=== PATIENT | male | born 1975 | race Caucasian/White ===

== ENCOUNTER 2018-05-12 01:45 | Observation (INO) | payer BC, OTHER ==
[~2018-05-12] VITALS: Ht 172.7 cm; Wt 99.8 kg
[2018-05-12] MEDS ORDERED: ONDANSETRON HCL 4 MG/2 ML VIAL IV ONE (02:00)
[2018-05-12] MEDS ORDERED: SODIUM CHLORIDE 0.9% 1,000 ML IV ONE (02:00)
[2018-05-12 02:15] LABS: Basophils # (auto) 0 uL; Basophils % (auto) 0.6 % (0.0-2.0); Eosinophils # (auto) 0.1 uL; Eosinophils % (auto) 2.1 % (0.0-7.0); Hematocrit 36.5 % (41.0-53.0); Hemoglobin 12.6 g/dL (13.5-17.5); Lymphocytes % (auto) 33.1 % (10.0-50.0); Mean Corpuscular Hemoglobin 33.6 pg (28.0-32.0); Mean Corpuscular Hgb Conc. 34.5 g/dL (32.0-36.0); Mean Corpuscular Volume 97.5 fL (80.0-100.0); Monocytes # (auto) 0.4 uL; Monocytes % (auto) 6.8 % (0.0-12.0); Neutrophils # (auto) 3.5 uL; Neutrophils % (auto) 57.4 % (37.0-80.0); Nucleated Red Blood Cells % 0.1 %; Platelet Count (auto) 145 10^3/uL (140-450); Red Blood Cells 3.74 10^6/uL (4.5-5.90)
[2018-05-12] MEDS ORDERED: LORazepam 2MG/ML-1ML VIAL IV ONE (02:15)
[2018-05-12 03:14] LABS: Albumin 2.4 g/dL (3.4-5.0); BUN/Creatinine Ratio 12.7
[2018-05-12 03:17] LABS: Bilirubin, Total 0.1 mg/dL (0.2-1.0); Total Protein 4.3 g/dL (6.4-8.2)
[2018-05-12 03:38] LABS: Calcium 5.2 mg/dL (8.5-10.1)
[2018-05-12 03:39] LABS: Potassium 2.6 mmol/L (3.5-5.1)
[2018-05-12] MEDS ORDERED: POTASSIUM CHL 20 Meq TABLET PO ONE (03:45)
[2018-05-12 04:30] VITALS: BP 111/73
[2018-05-12] MEDS ORDERED: POTASSIUM CHL 20MEQ/100ML 100 ML IV ONE ×2 (04:49→05:00)
[2018-05-12 04:54] LABS: Urine WBC None Seen /hpf (0 - 3)
[2018-05-12 05:00] LABS: Urine Bacteria NONE SEEN /hpf (None Seen); Urine Blood Negative /uL (Negative); Urine Specific Gravity 1.003 (1.001-1.035)
[2018-05-12 05:15] LABS: Amphetamine Screen, Urine NEGATIVE (NEGATIVE); Barbiturate Scree,Urine NEGATIVE (NEGATIVE); Benzodiazephine Screen, Urine NEGATIVE (NEGATIVE); Cannabinoid Screen, Urine NEGATIVE (NEGATIVE); Cocaine Screen, Urine NEGATIVE (NEGATIVE); Opiate Scree,Urine NEGATIVE (NEGATIVE); Phencyclidine Screen, Urine NEGATIVE (NEGATIVE)
== END 2018-05-12 04:54 | disposition home or self-care (01) | DRG 93 ==
LOC: ER 01:45 → OVERFLOW 01:46 → ER 04:54
PROVIDERS: ADMIT Emergency Medicine; ATTEND Emergency Medicine
DX: G92 Toxic encephalopathy (principal); R41.0 Disorientation, unspecified; F10.10 Alcohol abuse, uncomplicated
CPT/HCPCS: 36415; 80053; 80307; 80320; 81001; 85025; 93005; 96361; 96374; 99285; G0378; J2060; J2405; J3480